=== PATIENT | female | born 1995 | race Caucasian/White ===

== ENCOUNTER 2018-11-25 10:24 | Emergency (ER) | payer OTHER ==
[~2018-11-25] VITALS: Ht 160 cm; Wt 49.0 kg
[2018-11-25 10:31] VITALS: Ht 160 cm; Wt 49.0 kg
[2018-11-25 12:14] LABS: BASOPHIL % 0.7 % (0-2); PLATELET COUNT 172 x10^3mcL (130-400)
[2018-11-25 12:19] LABS: CALCIUM 9.1 mg/dL (8.5-10.1); CARBON DIOXIDE 26.8 mmol/L (21-32); CHLORIDE SERUM 106 mmol/L (98-107); CREATININE SERUM 0.7 mg/dL (0.6-1.0); GFR1 > 60 mL/min; GLUCOSE SERUM 83 mg/dL (74-106); POTASSIUM SERUM 3.9 mmol/L (3.5-5.1); SODIUM SERUM 142 mmol/L (136-145)
[2018-11-25 12:23] LABS: ALKALINE PHOSPHATASE 66 U/L (46-116); ALT/SGPT 17 U/L (14-59); AST/SGOT 16 U/L (15-37); BILIRUBIN TOTAL 0.7 mg/dL (0.20-1.00); LIPASE 112 IU/L (73-393); TOTAL PROTEIN, SERUM 7.7 g/dL (6.4-8.2)
[2018-11-25 13:16] VITALS: BP 110/78
== END 2018-11-25 13:16 | disposition home or self-care (01) ==
LOC: ED 10:24
PROVIDERS: Emergency Medicine
DX: K29.00 Acute gastritis without bleeding (principal); N39.0 Urinary tract infection, site not specified
CPT/HCPCS: 36415

== ENCOUNTER 2019-02-10 12:58 | Emergency (ER) | payer OTHER ==
[~2019-02-10] VITALS: Ht 160 cm; Wt 47.6 kg
[2019-02-10 13:28] VITALS: BP 89/50; Ht 160 cm; Wt 47.6 kg
== END 2019-02-10 15:18 | disposition home or self-care (01) ==
LOC: ED 12:58
DX: J06.9 Acute upper respiratory infection, unspecified (principal); R11.2 Nausea with vomiting, unspecified; Z86.2 Personal history of diseases of the blood and blood-forming organs and certain disorders involving the immune mechanism

== ENCOUNTER 2019-04-19 13:03 | Emergency (ER) | payer OTHER ==
[~2019-04-19] VITALS: Ht 160 cm; Wt 49.0 kg
[2019-04-19 13:44] VITALS: Ht 160 cm; Wt 49.0 kg
[2019-04-19 16:55] VITALS: BP 120/60
== END 2019-04-19 16:55 | disposition home or self-care (01) ==
LOC: ED 13:03
DX: K08.89 Other specified disorders of teeth and supporting structures (principal)
CPT/HCPCS: Q0162

== ENCOUNTER 2020-01-06 15:53 | Emergency (ER) | payer OTHER ==
[~2020-01-06] VITALS: Ht 157.5 cm; Wt 45.4 kg
[2020-01-06 16:01] VITALS: Ht 157.5 cm; Wt 45.4 kg
[2020-01-06 17:00] VITALS: BP 99/64
== END 2020-01-06 17:00 | disposition home or self-care (01) ==
LOC: ED 15:53
DX: R10.9 Unspecified abdominal pain (principal); R11.0 Nausea; Z86.2 Personal history of diseases of the blood and blood-forming organs and certain disorders involving the immune mechanism
CPT/HCPCS: J0500